=== PATIENT | male | born 1970 | race African-American/Black ===

== ENCOUNTER 2022-05-24 11:06 | Emergency (ER) | payer MEDICAID, OTHER ==
[~2022-05-24] VITALS: Ht 162.6 cm; Wt 66.0 kg
[2022-05-24 11:09] VITALS: BP 201/123
[2022-05-24] MEDS ORDERED: HYDR50TA MT (20:17)
== END 2022-05-25 02:48 | disposition home or self-care (01) ==
LOC: ER 11:06
DX: I10 Essential (primary) hypertension (principal)
CPT/HCPCS: 99283